=== PATIENT | male | born 1965 | race Caucasian/White ===

== ENCOUNTER 2018-02-11 20:17 | Inpatient (IN) | payer MEDICARE, MEDICAID ==
[~2018-02-11] VITALS: Ht 170.2 cm; Wt 96.6 kg
[2018-02-11] MEDS ORDERED: SODIUM CHLORIDE 0.9% 1,000 ML IV ONE (20:50)
[2018-02-11] MEDS ORDERED: ONDANSETRON HCL 4MG/2ML VIAL IV STA (20:50)
[2018-02-11] MEDS ORDERED: MORPHINE SULFATE 4 MG/ML CPJ (NOT FOR IM USE) IV STA (20:50)
[2018-02-11] MEDS ORDERED: DEXAMETHASONE 4MG/ML 1ML VIAL IV ONE (22:15)
[2018-02-11] MEDS ORDERED: LEVETIRACETAM 500MG PREMIX 100 ML IV ONE (22:15)
[2018-02-11] MEDS ORDERED: MORPHINE SULFATE 4 MG/ML CPJ (NOT FOR IM USE) IV ONE ×2 (22:15→23:00)
[2018-02-11] MEDS ORDERED: HYDRALAZINE 20MG/ML VIAL IV ONE (22:15)
[2018-02-11 22:54] LABS: BASOPHILS % 0.7 % (0.0-2.0); EOSINOPHILS % 0.2 % (0.0-5.0); HEMATOCRIT. 39.3 % (42.0-52.0); HEMOGLOBIN. 14.1 g/dL (14.0-18.0); LYMPHOCYTES % 17.2 % (20.0-50.0); MEAN CORPUSCULAR HEMOGLOBIN 28.7 pg (28.0-32.0); MEAN PLATELET VOLUME 7.5 fl (7.4-10.4); MONOCYTES % 10.3 % (2.0-8.0); NEUTROPHILS % 71.6 % (40.0-76.0); PLATELET 227 x1000/uL (130-400); RED BLOOD CELL COUNT 4.92 mill/uL (4.7-6.1); RED CELL DISTRIBUTION WIDTH 13.6 % (11.6-14.6)
[2018-02-11 22:59] LABS: CHLORIDE 85 mEq/L (98-107)
[2018-02-11 23:01] LABS: INR 1.1; PROTHROMBIN TIME 11.1 sec (9.1-11.1)
[2018-02-11 23:04] LABS: ETHANOL BLOOD < 10 mg/dL
[2018-02-11 23:06] LABS: AMMONIA 11 uMol/L (<32)
[2018-02-11 23:07] LABS: VALPROIC ACID < 3.0 ug/mL (50-100)
[2018-02-11 23:08] LABS: CREATINE KINASE 228 IU/L (39-308)
[2018-02-11 23:11] LABS: CARBAMAZEPINE < 0.5 ug/mL (4-12); PHENOBARBITAL < 2.1 ug/mL (15.0-40.0)
[2018-02-12] VITALS (64 sets, daily range): BP systolic 91–169; BP diastolic 54–114
[2018-02-12 00:47] LABS: CLARITY URINE CLEAR (CLEAR); COLOR URINE YELLOW (YELLOW); KETONES URINE 3+ (NEGATIVE); LEUKOCYTE ESTERASE URINE NEGATIVE (NEGATIVE); NITRITE URINE NEGATIVE (NEGATIVE); OCCULT BLOOD URINE 1+ (NEGATIVE); PROTEIN URINE 2+ (NEGATIVE); SPECIFIC GRAVITY URINE 1.032 (1.005-1.030); UROBILINOGEN URINE 0.2 E.U./dL (0.2-1.0)
[2018-02-12 01:05] LABS: *AMPHETAMINES SCREEN URINE NEGATIVE (NEGATIVE); *BARBITURATES SCREEN URINE NEGATIVE (NEGATIVE); *BENZODIAZEPINES SCREEN URINE NEGATIVE (NEGATIVE); *COCAINE SCREEN URINE NEGATIVE (NEGATIVE)
[2018-02-12 01:07] LABS: CANNABINOID URINE SCREEN NEGATIVE (NEGATIVE); METHADONE URINE SCREEN NEGATIVE (NEGATIVE); OPIATES URINE SCREEN NEGATIVE (NEGATIVE); PHENCYCLIDINE URINE SCREEN NEGATIVE (NEGATIVE)
[2018-02-12] MEDS ORDERED: MORPHINE SULFATE 4 MG/ML CPJ (NOT FOR IM USE) IV ONE (02:15)
[2018-02-12] MEDS ORDERED: NICARDIPINE 100 MG in SODIUM CHLORIDE 0.9% 60 ML IV PRN (05:30)
[2018-02-12] MEDS ORDERED: DEXT 5%/LACTATED RINGERS 1,000 ML IV SCH ×2 (06:00→14:15)
[2018-02-12] MEDS: PHENYTOIN SODIUM 100MG/2ML VIAL IV SCH ×2 (06:18→13:44)
[2018-02-12] MEDS: DEXAMETHASONE 4MG/ML 1ML VIAL IV SCH ×3 (06:18→19:23)
[2018-02-12] MEDS ORDERED: IOHEXOL-350 100 ML BOTTLE ONE (09:28)
[2018-02-12] MEDS: MORPHINE SULFATE 4 MG/ML CPJ (NOT FOR IM USE) IV PRN (09:32)
[2018-02-12] MEDS ORDERED: DEXTROSE 50% WATER 50ML SYRINGE IV PRN (11:30)
[2018-02-12] MEDS: BLOOD SUGAR DIAGNOSTIC STRIP TEST SCH ×3 (11:34→21:32)
[2018-02-12] MEDS ORDERED: AMLO5TAB88 MT (12:20)
[2018-02-12] MEDS ORDERED: METF500T6 MT (12:20)
[2018-02-12] MEDS: INSULIN LISPRO 100 UNITS/ML SUBCUT SCH ×3 (12:26→21:31)
[2018-02-12] MEDS ORDERED: HYDROCODONE/ACETAMINOPHEN 5/325MG TABLET PO PRN (15:00)
[2018-02-12 16:40] LABS: BASOPHILS % 0.2 % (0.0-2.0); HEMATOCRIT. 42.6 % (42.0-52.0); HEMOGLOBIN. 14.9 g/dL (14.0-18.0); LYMPHOCYTES % 9.2 % (20.0-50.0); MEAN CORPUSCULAR HEMOGLOBIN 28.6 pg (28.0-32.0); MEAN CORPUSCULAR VOLUME 81.4 fL (80.0-94.0); MEAN PLATELET VOLUME 7.6 fl (7.4-10.4); MONOCYTES % 7.1 % (2.0-8.0); NEUTROPHILS % 83.5 % (40.0-76.0); PLATELET 255 x1000/uL (130-400); RED BLOOD CELL COUNT 5.23 mill/uL (4.7-6.1); RED CELL DISTRIBUTION WIDTH 13.6 % (11.6-14.6)
[2018-02-12 16:44] LABS: CHLORIDE 93 mEq/L (98-107)
[2018-02-13] VITALS (68 sets, daily range): BP systolic 111–191; BP diastolic 40–121
[2018-02-13] MEDS: DEXAMETHASONE 4MG/ML 1ML VIAL IV SCH ×3 (00:13→11:58)
[2018-02-13] MEDS: BLOOD SUGAR DIAGNOSTIC STRIP TEST SCH ×4 (06:06→21:00)
[2018-02-13] MEDS: INSULIN LISPRO 100 UNITS/ML SUBCUT SCH ×4 (06:08→21:00)
[2018-02-13] MEDS ORDERED: MEDICATION NOT ON FORMULARY EA (Amlodipine Besylate 1 TAB) MT SCH (11:45)
[2018-02-13] MEDS ORDERED: MEDICATION NOT ON FORMULARY EA (Metformin Hcl 1 TAB) MT SCH (11:45)
[2018-02-13] MEDS ORDERED: AMLODIPINE 5MG TABLET PO SCH ×2 (12:00→12:15)
[2018-02-13 12:36] LABS: HEMATOCRIT. 40.7 % (42.0-52.0); MEAN CORPUSCULAR HEMOGLOBIN 28.3 pg (28.0-32.0); MEAN CORPUSCULAR VOLUME 82.1 fL (80.0-94.0); MEAN PLATELET VOLUME 8.2 fl (7.4-10.4); PLATELET 265 x1000/uL (130-400); RED BLOOD CELL COUNT 4.96 mill/uL (4.7-6.1)
[2018-02-13 12:40] LABS: CHLORIDE 97 mEq/L (98-107)
[2018-02-13 14:28] LABS: PLATELET ESTIMATE NORMAL
[2018-02-13] MEDS: METFORMIN HCL 500MG TABLET PO SCH (16:54)
[2018-02-13] MEDS: AMLODIPINE 5MG TABLET PO SCH (16:54)
[2018-02-13] MEDS ORDERED: METFORMIN HCL 500MG TABLET PO SCH (17:00)
[2018-02-13] MEDS ORDERED: CLONIDINE 0.1MG TABLET PO PRN (18:15)
[2018-02-13] MEDS ORDERED: INSULIN GLARGINE UD 100 UNITS/ML SYR SUBCUT NR (20:00)
[2018-02-13] MEDS ORDERED: FAMOTIDINE 20MG TABLET PO SCH (21:00)
[2018-02-13] MEDS ORDERED: ATORVASTATIN CALCIUM 10MG TABLET PO SCH (21:00)
[2018-02-14] VITALS: BP 146/91
[2018-02-14 04:00] VITALS: BP 127/77
[2018-02-14] MEDS: BLOOD SUGAR DIAGNOSTIC STRIP TEST SCH ×3 (07:20→17:20)
[2018-02-14 07:24] LABS: CHLORIDE 100 mEq/L (98-107)
[2018-02-14] MEDS: MORPHINE SULFATE 4 MG/ML CPJ (NOT FOR IM USE) IV PRN (07:25)
[2018-02-14] MEDS: INSULIN LISPRO 100 UNITS/ML SUBCUT SCH ×3 (07:27→17:57)
[2018-02-14 07:36] LABS: BASOPHILS % 0.3 % (0.0-2.0); EOSINOPHILS % 0.2 % (0.0-5.0); HEMATOCRIT. 39.9 % (42.0-52.0); HEMOGLOBIN. 13.9 g/dL (14.0-18.0); LYMPHOCYTES % 16.3 % (20.0-50.0); MEAN CORPUSCULAR HEMOGLOBIN 28.7 pg (28.0-32.0); MEAN CORPUSCULAR VOLUME 82.6 fL (80.0-94.0); MEAN PLATELET VOLUME 7.9 fl (7.4-10.4); MONOCYTES % 8.8 % (2.0-8.0); NEUTROPHILS % 74.4 % (40.0-76.0); PLATELET 273 x1000/uL (130-400); RED BLOOD CELL COUNT 4.83 mill/uL (4.7-6.1); RED CELL DISTRIBUTION WIDTH 13.7 % (11.6-14.6)
[2018-02-14 08:00] VITALS: BP 152/96
[2018-02-14] MEDS: METFORMIN HCL 500MG TABLET PO SCH ×2 (08:35→17:53)
[2018-02-14] MEDS: AMLODIPINE 5MG TABLET PO SCH ×2 (08:35→17:54)
[2018-02-14] MEDS ORDERED: INSULIN GLARGINE UD 100 UNITS/ML SYR SUBCUT SCH (10:00)
[2018-02-14 12:00] VITALS: BP 147/90
[2018-02-14] MEDS ORDERED: GLIP5TAB12 MT (13:33)
[2018-02-14] MEDS ORDERED: GLIPIZIDE XL 2.5MG TABLET PO ONE (13:45)
[2018-02-14] MEDS: GLIPIZIDE 5MG TABLET PO SCH ×2 (14:27→17:54)
[2018-02-14] MEDS ORDERED: HYDRALAZINE 20MG/ML VIAL IV PRN (14:30)
[2018-02-14] MEDS ORDERED: HYDRALAZINE 10 MG in SODIUM CHLORIDE 0.9% 49.5 ML IV PRN (15:30)
[2018-02-14 16:00] VITALS: BP 149/86
[2018-02-14 18:21] VITALS: BP 149/86
[2018-02-15] MEDS ORDERED: GLIPIZIDE 5MG XL TABLET PO SCH (07:50)
== END 2018-02-14 19:45 | disposition home health service (06) | DRG 64 ==
LOC: ER 21:06 → EDBEDREQ 02-12 01:08 → MICUSO 02-12 02:50 → EDBEDREQTM 02-12 02:52 → EDBEDREQ 02-12 02:52 → ENRESERV 02-12 02:53 → 6EST 02-13 18:02
PROVIDERS: ADMIT Family Medicine; ATTEND Family Medicine
DX: I63.9 Cerebral infarction, unspecified (principal); E43 Unspecified severe protein-calorie malnutrition; E87.1 Hypo-osmolality and hyponatremia; I10 Essential (primary) hypertension; E78.5 Hyperlipidemia, unspecified; E11.51 Type 2 diabetes mellitus with diabetic peripheral angiopathy without gangrene; F60.89 Other specific personality disorders; Z79.4 Long term (current) use of insulin; Z79.899 Other long term (current) drug therapy; Z82.49 Family history of ischemic heart disease and other diseases of the circulatory system; Z83.3 Family history of diabetes mellitus; Z86.73 Personal history of transient ischemic attack (TIA), and cerebral infarction without residual deficits; Z89.431 Acquired absence of right foot; Z91.14 Patient's other noncompliance with medication regimen; Z68.33 Body mass index [BMI] 33.0-33.9, adult
CPT/HCPCS: 36415; 70450; 70496; 70551; 71045; 80048; 80053; 80061; 80156; 80165; 80184; 80185; 80305; 81003; 82140; 82550; 82962; 84443; 84484; 85025; 85610; 93005; 93306; 93880; 93970; 96374; 96375; 96376; 97162; 99285; G0482; J0360; J1100; J1165; J1815; J1953; J2270; J2405; J3490; J7030; J7050; Q9967